=== PATIENT | female | born 1955 | race Caucasian/White ===

== ENCOUNTER 2019-12-20 18:28 | Emergency (ER) | payer MEDICARE, OTHER ==
[~2019-12-20] VITALS: Ht 160 cm; Wt 76.7 kg
[2019-12-20] MEDS ORDERED: ALPR0.254 PO (18:38)
--- NOTE | 2019-12-20 19:14 | NUR ---
PT TO ROOM FROM LOBBY AT THIS TIME.
--- NOTE | 2019-12-20 19:25 | NUR ---
PT AMB TO BR WITH STEADY GAIT. URINE CUP GIVEN.
--- NOTE | 2019-12-20 19:25 | NUR ---
FIRST CONTACT WITH PT. PT STATES "EDEMA IN MY LEFT LEG" & LT KIDNEY PAIN X 2-1/2 DAYS. PT DENIES ANY UTI SX. PT'S AOX4. RESPS EVEN AND UNLABORED. BP/SPO2 MONITORS IN PLACE. CALL LIGHT WITHIN REACH.
--- NOTE | 2019-12-20 19:35 | NUR ---
EDMD AT BEDSIDE TO EVALUATE AT THIS TIME.
--- NOTE | 2019-12-20 20:03 | NUR ---
US AT BEDSIDE AT THIS TIME.
--- NOTE | 2019-12-20 20:39 | NUR ---
PT RESTING IN [facility]. PT'S AOX4. RESPS EVEN AND UNLABORED.
[2019-12-20 20:42] VITALS: BP 142/80
--- NOTE | 2019-12-20 21:20 | NUR ---
Patient given discharge instructions and they have confirmed that they understand the instructions. Patient ambulatory with steady gait.
== END 2019-12-20 21:21 | disposition home or self-care (01) ==
LOC: ED 19:43
DX: R60.0 Localized edema (principal); R10.9 Unspecified abdominal pain
CPT/HCPCS: 99284